=== PATIENT | male | born 1980 | race American Indian/Alaskan Native ===

== ENCOUNTER 2018-01-04 12:57 | Emergency (ER) | payer MEDICAID ==
[2018-01-04 13:20] VITALS: BP 152/102; PULSE 82; RESP 18; TEMP 97.9; O2SAT 99
--- NOTE | 2018-01-04 14:09 | C.PDOC ---
History Of Present Illness 37 yo male w/PMHx of polysubstance abuse, come in accompanied by family member request detox from alcohol, PCP. As per family member, " trying to get him to detox". At present time, pt appears slightly anxious, combative, easily calmed by family member. Otherwise, pt denies depression, suicidal or homocidal ideation. Time Seen by Provider: 01/04/18 13:35 Chief Complaint (Nursing): Substance Abuse History Per: Patient, Family Past Medical History Reviewed: Historical Data, Nursing Documentation, Vital Signs Vital Signs: Last Vital Signs Temp 97.9 F 01/04/18 13:17 Pulse 82 01/04/18 13:17 Resp 18 01/04/18 13:17 BP 152/102 H 01/04/18 13:17 Pulse Ox 99 01/04/18 14:43 - Medical History PMH: No Chronic Diseases Family History: States: No Known Family Hx - Social History Hx Tobacco Use: Yes Hx Alcohol Use: Yes Hx Substance Use: Yes - Immunization History Hx Tetanus Toxoid Vaccination: No Hx Influenza Vaccination: No Hx Pneumococcal Vaccination: No Review Of Systems Except As Marked, All Systems Reviewed And Found Negative. Constitutional: Negative for: Fever, Chills ENT: Negative for: Throat Pain, Throat Swelling Cardiovascular: Negative for: Chest Pain, Palpitations, Orthopnea, Edema, Light Headedness Respiratory: Negative for: Cough, Shortness of Breath Gastrointestinal: Negative for: Nausea, Vomiting, Abdominal Pain Genitourinary: Negative for: Incontinence Musculoskeletal: Negative for: Neck Pain, Back Pain Neurological: Negative for: Altered Mental Status Psych: Negative for: Suicidal ideation Physical Exam - Physical Exam Appears: Well, Non-toxic, No Acute Distress Skin: Normal Color, Warm, No Rash, No Ecchymosis Head: Atraumatic, Normacephalic Eye(s): bilateral: PERRL Nose: No Discharge Oral Mucosa: Moist Tongue: Normal Appearing Lips: Normal Appearing Chest: Symmetrical Cardiovascular: Rhythm Regular, No Murmur, No JVD Respiratory: No Decreased Breath Sounds, No Accessory Muscle Use, No Stridor, No Wheezing Gastrointestinal/Abdominal: Soft, No Tenderness Back: No Vertebral Tenderness Extremity: Normal ROM, No Deformity, No Swelling Neurological/Psych: Oriented x3, Normal Speech ED Course And Treatment O2 Sat by Pulse Oximetry: 99 Pulse Ox Interpretation: Normal Progress Note: Pt was seen by crisis, , discussed with family. No available detox bed at present time. Other outpt resources given. On re-eval, pt denies suicidal or homocidal ideation. Pt is stable for discharges home accompanied by family. Disposition Counseled Patient/Family Regarding: Diagnosis, Need For Followup - Disposition Referrals: [facility] [place] [facility] [Outside] Disposition: HOME/ ROUTINE Disposition Time: 13:01 Condition: STABLE Instructions: Polysubstance Abuse Forms: [employer] ([place]ri[place]) - Clinical Impression Clinical Impression: Polysubstance (excluding opioids) dependence
== END 2018-01-04 14:14 | disposition home or self-care (01) ==
LOC: C.ER 12:57
DX: F19.20 Other psychoactive substance dependence, uncomplicated (principal)